=== PATIENT | female | born 1935 | race Caucasian/White ===

== ENCOUNTER 2018-09-26 07:17 | Emergency (ER) | payer MEDICARE ==
[2018-09-26 07:59] LABS: #Basophils 0.1 thou/uL (0.0-0.2); #Eosinphils 0.5 thou/uL (0.0-0.7); #Lymphocytes 1.4 thou/uL (1.20-3.40); #Monocytes 0.5 thou/uL (0.11-0.59); #Neutrophils 6.2 thou/uL (1.40-6.50); %Basophils 1.1 % (0.0-1.0); %Lymphocytes 15.7 % (21.0-51.0); %Monocytes 5.4 % (0.0-10.0); %Neutrophils 71.7 % (42.0-75.0); Hemoglobin 13.2 g/dL (12.0-16.0); Mean Corpuscular HGB CONC 34.1 g/dL (32.0-36.0); Mean Corpuscular Volume 87.9 fL (78.0-98.0); Mean Platelet Volume 6.9 fL (7.4-10.4); Platelet Count 212 thou/uL (130-400); Red Blood Cell (RBC) Count 4.41 mill/uL (4.20-5.40); White Blood Cell (WBC) Count 8.7 thou/uL (4.8-10.8)
[2018-09-26 08:14] LABS: ALT (SGPT) 9 U/L (8-55); AST (SGOT) 18 U/L (5-34); Alkaline Phosphatase 72 U/L (40-150); Anion Gap 13 mmol/L (10-20); BUN (Urea Nitrogen) 16 mg/dL (9.8-20.1); Bilirubin, Total 0.5 mg/dL (0.2-1.2); Calc. Creatinine Clearance 0 mL/min (70-130); Calcium 9.2 mg/dL (7.8-10.44); Carbon Dioxide 27 mmol/L (23-31); Chloride 108 mmol/L (98-107); Estimated GFR-MDRD 72; Globulin 3.3 g/dL (2.4-3.5); Glucose 106 mg/dL (83-110); Potassium 3.4 mmol/L (3.5-5.1); Protein, Total 7.3 g/dL (6.0-8.3); Sodium 145 mmol/L (136-145)
[2018-09-26 08:25] LABS: Base Excess-Venous 2.5 mmol/L (0 (+/- 2.5)); Bicarbonate (HCO3v) 26.7 mmol/L (22.0-29.0); CO2 Tension (PvCO2) 38.7 mmHg (41.0-51.0); Calcium, Ionized 1.07 mmol/L (1.12-1.32); Hemoglobin - Calc 13.1 g/dL (12.0-18.0); O2 Tension (PvO2) 54.7 mmHg (35.0-45.0); Potassium 3.8 mmol/L (3.4-4.7); T. Carbon Dioxide 27.8 mmol/L (1.0-85.0); pH (Venous) 7.446 (7.35-7.45); vO2 Saturation-calc 89.4 % (94-98)
[2018-09-26] MEDS ORDERED: Aspirin Chewable 81 MG TAB ONE (08:41)
[2018-09-26] MEDS ORDERED: Enoxaparin Sodium 100 MG/ML SYRINGE ONE (08:41)
[2018-09-26] MEDS ORDERED: Iopamidol 370 76% 100 ML VIAL ONE (09:00)
--- NOTE | 2018-09-26 09:05 | RAD ---
PORTABLE CHEST: Date: 09/26/18 HISTORY: Dyspnea. FINDINGS: Heart size is within normal limits. There are atherosclerotic changes of the aorta. Lungs are clear o f infiltrates. There are scoliotic changes of the spine. Bilateral breast augmentation is noted. IMPRESSION: No active intrathoracic disease. POS: [facility]
[2018-09-26 09:25] LABS: CKMB 3.1 ng/mL (0-6.6)
--- NOTE | 2018-09-26 10:30 | CT ---
CT ANGIO OF CHEST PERFORMED WITH IV CONTRAST ENHANCEMENT AND 3D RECONSTRUCTIONS: Date: 09/26/18 HISTORY: Shortness of breath. FINDINGS: The lungs are clear of any focal infiltrative process. There are no pulmonary nodules or pleural effu sions identified. There is no significant mediastinal, hilar, or axillary adenopathy. Calcified breast implants are not ed. There are coronary artery calcifications identified. The ascending thoracic aorta is approximately 4. 3 cm. There are no signs of any dissection. The descending thoracic aorta is normal in caliber. There is good pulmonary artery opacification. There is no CT evidence for pulmonary embolus. Visualized liver parenchyma shows no definite focal findings. IMPRESSION: 1. No CT evidence for pulmonary embolus. 2. AP dimension of the ascending aorta is 4.3 cm. POS: [facility]
== END 2018-09-26 10:40 | disposition short-term general hospital (02) ==
LOC: BURERS 07:17
DX: I24.9 Acute ischemic heart disease, unspecified (principal); I71.4 Abdominal aortic aneurysm, without rupture; J44.9 Chronic obstructive pulmonary disease, unspecified; I10 Essential (primary) hypertension; Z87.891 Personal history of nicotine dependence; Z79.899 Other long term (current) drug therapy; Z79.51 Long term (current) use of inhaled steroids
CPT/HCPCS: 36415; 71045; 71275; 80053; 82330; 82553; 82803; 83880; 84484; 85025; 85379; 93005; 94760; 96372; J1650; Q9967